=== PATIENT | male | born 1940 ===

== ENCOUNTER 2023-11-19 21:01 | Inpatient (IN) ==
[2023-11-19 22:39] LABS: Hematocrit 25.9 % (38-53); Hemoglobin 8.7 g/dL (13.2-16.3)
[2023-11-19] MEDS: Amiodarone 360 MG IVPREMIX 360 MG/200 ML BAG IV SCH (22:45)
[2023-11-19] MEDS: Pantoprazole 80 mg in NS BAG 80 MG/250 ML BAG IV SCH (23:44)
[2023-11-20] MEDS: Amiodarone 360 MG IVPREMIX 360 MG/200 ML BAG IV SCH (01:37)
[2023-11-20] MEDS: cefTRIAXone 1 gm/50 mL D5W 1 GM/50 ML BAG IV ONE (01:53)
[2023-11-20] MEDS: Sulfur Hexaflouride MICROSPHR 25 MG VIAL IV ONE (03:06)
[2023-11-20 05:07] LABS: ABS Eosinophils 0.1 10^3/uL (0.0-0.5); ABS Lymphocytes 1.8 10^3/uL (1.0-4.8); ABS Monocytes 0.4 10^3/uL (0.0-1.1); ABS Neutrophils 5.7 10^3/uL (1.5-7.6); ABS Nucleated RBC 0.01 10^3/ul; Eosinophil % 1.4 %; Hematocrit 24.5 % (38-53); Hemoglobin 8.3 g/dL (13.2-16.3); Lymphocyte % 21.9 %; Mean Corpuscular Hemoglobin 31.4 pg (27-33); Mean Corpuscular Hgb Conc 33.9 g/dL (31-36); Mean Corpuscular Volume 92.6 fL (80-97); Mean Platelet Volume 8.2 fL (7.5-11.2); Nucleated Red Blood Cells % 0.1 %/100WBC (0.0-0.8); Platelet Count 286 10^3/uL (150-450); Red Blood Count 2.65 10^6/uL (4.06-5.63); Red Cell Distribution Width 17.8 % (12-17)
[2023-11-20 05:27] LABS: Calcium 7.8 mg/dL (8.6-10.3); Creatinine, Serum 0.95 mg/dL (0.67-1.17); Magnesium 2.4 mg/dL (1.9-2.7); Potassium 4.1 mmol/L (3.5-5.0); eGFR CKD-EPI 80.4 (>60)
[2023-11-20 06:36] LABS: Ferritin 47.8 ng/mL (24-336)
[2023-11-20 06:40] LABS: Folate 6.52 ng/mL (5.90-24.80)
[2023-11-20 12:04] LABS: Hematocrit 27.5 % (38-53); Hemoglobin 9.2 g/dL (13.2-16.3)
[2023-11-20] MEDS: CALCIUM GLUCONATE 1GM/50ML NS 1 GM/50 ML BAG IV ONE (12:11)
[2023-11-20 12:17] LABS: INR 0.99 (0.83-1.13)
[2023-11-20] MEDS ORDERED: Lidocaine 2% PF 5 ML VIAL ONE (14:20)
[2023-11-20] MEDS ORDERED: Propofol 10 MG/ML 20 ML BTL ONE (14:20)
[2023-11-20] MEDS ORDERED: fentaNYL 100 mcg/2 ml 50 MCG/ML VIAL ONE (14:20)
[2023-11-20] MEDS ORDERED: Midazolam 2 mg/2 ml VIAL 1 mg/ml 2 ml VIAL (2 mg) ONE (14:20)
[2023-11-20 20:03] LABS: Hematocrit 24.4 % (38-53); Hemoglobin 8.2 g/dL (13.2-16.3)
[2023-11-20] MEDS: Pantoprazole VIAL 40 MG VIAL IV SCH (21:18)
[2023-11-20] MEDS: Ferric Gluconate IV 250 MG in NS 0.9% 250 ml 200 ML IVPB SCH (21:24)
[2023-11-21 04:17] LABS: ABS Eosinophils 0.1 10^3/uL (0.0-0.5); ABS Lymphocytes 1.2 10^3/uL (1.0-4.8); ABS Monocytes 0.4 10^3/uL (0.0-1.1); ABS Neutrophils 5.4 10^3/uL (1.5-7.6); Eosinophil % 1.4 %; Hematocrit 25.4 % (38-53); Hemoglobin 8.8 g/dL (13.2-16.3); Mean Corpuscular Hemoglobin 31.6 pg (27-33); Mean Corpuscular Hgb Conc 34.5 g/dL (31-36); Mean Corpuscular Volume 91.7 fL (80-97); Mean Platelet Volume 8.2 fL (7.5-11.2); Platelet Count 297 10^3/uL (150-450); Red Blood Count 2.77 10^6/uL (4.06-5.63); Red Cell Distribution Width 17.6 % (12-17); White Blood Count 7.2 10^3/uL (3.6-10.2)
[2023-11-21 04:41] LABS: Calcium 8.2 mg/dL (8.6-10.3); Creatinine, Serum 0.99 mg/dL (0.67-1.17); Magnesium 2.2 mg/dL (1.9-2.7); Potassium 4.4 mmol/L (3.5-5.0); eGFR CKD-EPI 76.5 (>60)
[2023-11-22 06:19] LABS: ABS Eosinophils 0.1 10^3/uL (0.0-0.5); ABS Lymphocytes 1.5 10^3/uL (1.0-4.8); ABS Monocytes 0.4 10^3/uL (0.0-1.1); ABS Neutrophils 4.1 10^3/uL (1.5-7.6); Eosinophil % 2.4 %; Hematocrit 27.9 % (38-53); Hemoglobin 9.2 g/dL (13.2-16.3); Lymphocyte % 23.8 %; Mean Corpuscular Hemoglobin 30.5 pg (27-33); Mean Corpuscular Hgb Conc 33.2 g/dL (31-36); Mean Corpuscular Volume 91.9 fL (80-97); Mean Platelet Volume 8.4 fL (7.5-11.2); Nucleated Red Blood Cells % 0.1 %/100WBC (0.0-0.8); Platelet Count 323 10^3/uL (150-450); Red Blood Count 3.03 10^6/uL (4.06-5.63); Red Cell Distribution Width 16.8 % (12-17); White Blood Count 6.1 10^3/uL (3.6-10.2)
[2023-11-22 06:33] LABS: Calcium 8.5 mg/dL (8.6-10.3); Creatinine, Serum 1.11 mg/dL (0.67-1.17); Magnesium 2.1 mg/dL (1.9-2.7); Potassium 4.9 mmol/L (3.5-5.0); eGFR CKD-EPI 66.7 (>60)
[2023-11-22 09:59] VITALS: BP 129/58
[2023-11-22] MEDS: Polyethylene Glycol 3350 17 GM PACKET PO SCH (11:47)
== END 2023-11-22 11:55 | disposition home or self-care (01) | DRG 378 ==
LOC: ICU 22:13 → SUATTDRO 22:15 → ICU 11-20 09:17 → MEDTELE 11-21 00:57
PROVIDERS: ADMIT Surgery Surgical Critical Care; ATTEND Internal Medicine
PROC: O.GIEGD (2023-11-20 14:50)